=== PATIENT | female | born 2000 | race Native Hawaiian/Other Pacific Islander ===

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

== ENCOUNTER 2022-02-25 10:31 | Outpatient (CLI) | payer OTHER | END 2022-02-25 19:03 | disposition home or self-care (01) | LOC: LABW 10:31 | PROVIDERS: ATTEND Pediatrics | DX: R30.0 Dysuria (principal); R10.30 Lower abdominal pain, unspecified | CPT/HCPCS: 81002; 87086; 87088 ==